=== PATIENT | male | born 1970 | race Caucasian/White ===

== ENCOUNTER 2016-12-30 18:09 | Emergency (ER) | payer OTHER ==
--- NOTE | 2016-12-30 19:10 | ER Document Report ---
ED Medical Screen (RME) - General Chief Complaint: Leg Pain Stated Complaint: LEG PAIN Time Seen by Provider: 12/30/16 18:55 Notes: Patient is a 46-year-old male, past medical history multiple PEs, left upper extremity DVT (compliant on Xarelto), presents with 3 days of right lower extremity swelling and pain after he took a car trip from [place]. He denies injury, numbness, tingling, difficulty walking or fevers. PE: Right calf swelling and tenderness, positive Naresh's sign on right, strong distal pulses, RRR, lungs CTAB I have greeted and performed a rapid initial assessment of this patient. A comprehensive ED assessment and evaluation of the patient, analysis of test results and completion of the medical decision making process will be conducted by additional ED providers. TRAVEL OUTSIDE OF THE [place] IN LAST 30 DAYS: No - Related Data Allergies/Adverse Reactions: Sulfa (Sulfonamide Antibiotics) Allergy (Verified 12/30/16 18:17) Past Medical History Renal/ Medical History: Denies: Hx Peritoneal Dialysis Physical Exam - Vital signs Vitals: Temp Pulse Resp BP Pulse Ox 98.4 F 94 20 112/81 96 12/30/16 18:17 12/30/16 18:17 12/30/16 18:17 12/30/16 18:17 12/30/16 18:17 Course - Vital Signs Vital signs: Temp Pulse Resp BP Pulse Ox 98.4 F 94 20 112/81 96 12/30/16 18:17 12/30/16 18:17 12/30/16 18:17 12/30/16 18:17 12/30/16 18:17
[2016-12-30 19:46] LABS: ALANINE AMINOTRANSFERASE 31 U/L (21-72); ALBUMIN 4.4 g/dL (3.5-5.0); ALKALINE PHOSPHATASE 77 U/L (38-126); ANION GAP 11 (5-19); ASPARTATE AMINO TRANSFERASE 21 U/L (17-59); BILIRUBIN,DIRECT 0.3 mg/dL (0.0-0.4); BILIRUBIN,TOTAL 0.6 mg/dL (0.2-1.3); BLOOD UREA NITROGEN 17 mg/dL (7-20); CALCIUM 9.4 mg/dL (8.4-10.2); CARBON DIOXIDE 29 mmol/L (22-30); CHLORIDE 99 mmol/L (98-107); CREATINE KINASE 88 U/L (55-170); CREATININE RESULT 1.17 mg/dL (0.52-1.25); GLUCOSE 96 mg/dL (75-110); POTASSIUM 4.5 mmol/L (3.6-5.0); SODIUM 138.5 mmol/L (137-145); TOTAL PROTEIN 7.4 g/dL (6.3-8.2)
[2016-12-30 20:04] LABS: ABSOLUTE BASOPHILS # (AUTO) 0.1 10^3/uL (0.0-0.2); ABSOLUTE EOSINOPHILS # (AUTO) 0.1 10^3/uL (0.0-0.6); ABSOLUTE LYMPHOCYTES (AUTO) 1.8 10^3/uL (0.5-4.7); ABSOLUTE MONOCYTES (AUTO) 0.6 10^3/uL (0.1-1.4); ABSOLUTE NEUT (AUTO) 5.6 10^3/uL (1.7-8.2); BASOPHILS % (AUTO) 0.9 % (0-2); EOSINOPHILS % (AUTO) 1.5 % (0-6); HEMATOCRIT 39.1 % (37.9-51.0); HEMOGLOBIN 12.7 g/dL (13.5-17.0); LYMPHOCYTES % (AUTO) 22.2 % (13-45); MEAN CORPUSCULAR HEMOGLOBIN 28.4 pg (27.0-33.4); MEAN CORPUSCULAR HGB CONC 32.4 g/dL (32.0-36.0); MEAN CORPUSCULAR VOLUME 87 fl (80-97); MONOCYTES % (AUTO) 7.8 % (3-13); RED BLOOD COUNT 4.47 10^6/uL (4.35-5.55); RED CELL DISTRIBUTION WIDTH 13.3 % (11.5-14.0); SEGMENTED NEUTROPHILS % (AUTO) 67.6 % (42-78); WHITE BLOOD COUNT 8.2 10^3/uL (4.0-10.5)
[2016-12-30 20:09] LABS: PROTHROMBIN TIME 15.4 SEC (11.4-15.4)
[2016-12-30 20:10] LABS: PARTIAL THROMBOPLASTIN TIME 32.6 SEC (23.5-35.8)
[2016-12-30] MEDS ORDERED: OXYCODONE-ACETAMINOPHEN 5-325 MG TABLET PO ONE (20:22)
--- NOTE | 2016-12-30 20:22 | ER Document Report ---
ED Extremity Problem, Lower - General Chief Complaint: Leg Pain Stated Complaint: LEG PAIN Time Seen by Provider: 12/30/16 18:55 Notes: Patient is a 46-year-old male that comes emergency department for chief complaint of right lower extremity swelling. Patient states he has had these symptoms for about 3 days, initially he had swelling in both lower extremities, left lower extremity resolved, right lower extremity seems to have worsened. He came down from [place] last Friday in a two-part trip, he has a history of DVT in the left lower extremity and PEs, this was diagnosed 2 months ago, he is compliant with Xarelto. He denies shortness of breath, fever, he denies any other symptoms except right lower extremity pain. He is leaving this area on Friday to go back home to [place]. TRAVEL OUTSIDE OF THE [place] IN LAST 30 DAYS: No - Related Data Allergies/Adverse Reactions: Sulfa (Sulfonamide Antibiotics) Allergy (Verified 12/30/16 18:17) Past Medical History - General Information source: Patient - Social History Smoking Status: Never Smoker Frequency of alcohol use: None Drug Abuse: None Lives with: Family Family History: Reviewed & Not Pertinent Patient has suicidal ideation: No Patient has homicidal ideation: No - Past Medical History Cardiac Medical History: Reports: Hx DVT, Hx Pulmonary Embolism Renal/ Medical History: Denies: Hx Peritoneal Dialysis Surgical Hx: Negative - Immunizations Immunizations up to date: Yes Hx Diphtheria, Pertussis, Tetanus Vaccination: Yes Review of Systems - Review of Systems Constitutional: No symptoms reported EENT: No symptoms reported Cardiovascular: See HPI Respiratory: No symptoms reported Gastrointestinal: No symptoms reported Genitourinary: No symptoms reported Male Genitourinary: No symptoms reported Musculoskeletal: See HPI Skin: No symptoms reported Hematologic/Lymphatic: No symptoms reported Neurological/Psychological: No symptoms reported Physical Exam - Vital signs Vitals: Temp Pulse Resp BP Pulse Ox 98.4 F 94 20 112/81 96 12/30/16 18:17 12/30/16 18:17 12/30/16 18:17 12/30/16 18:17 12/30/16 18:17 Interpretation: Normal - General General appearance: Appears well, Alert In distress: None - HEENT Head: Normocephalic, Atraumatic Eyes: Normal Conjunctiva: Normal Extraocular movements intact: Yes Eyelashes: Normal Pupils: PERRL Mouth/Lips: Normal Mucous membranes: Normal Pharynx: Normal Neck: Normal - Respiratory Respiratory status: No respiratory distress Chest status: Nontender Breath sounds: Normal Chest palpation: Normal - Cardiovascular Rhythm: Regular. No: Tachycardia Heart sounds: Normal auscultation, S1 appreciated, S2 appreciated Murmur: No - Abdominal Inspection: Normal Distension: No distension Bowel sounds: Normal Tenderness: Nontender. No: Tender, Guarding Organomegaly: No organomegaly - Back Back: Normal, Nontender. No: Tender, Vertebra tenderness - Extremities General upper extremity: Normal inspection, Nontender, Normal color, Normal ROM , Normal temperature General lower extremity: Other - Right lower extremity with mild erythema over the medial aspect consistent with first-degree burn, there is tenderness over the calf, positive Homans sign, there is questionable slight lower extremity swelling on the right compared to the left, normal distal pulses and sensation, unremarkable exam otherwise - Neurological Neuro grossly intact: Yes Cognition: Normal Orientation: AAOx4 Sosa Coma Scale Eye Opening: Spontaneous Piffard Coma Scale Verbal: Oriented Sosa Coma Scale Motor: Obeys Commands Sosa Coma Scale Total: 15 Speech: Normal Cranial nerves: Normal Cerebellar coordination: Normal Motor strength normal: LUE, RUE, LLE, RLE Additional motor exam normals: Equal v groove cutter Sensory: Normal - Psychological Associated symptoms: Normal affect, Normal mood - Skin Skin Temperature: Warm Skin Moisture: Dry Skin Color: Normal Course - Re-evaluation Re-evalutation: Erythematous streak up the medial aspect of the right leg, patient states this was a sunburn, it is consistent with a sunburn and does not appear to be cellulitis. Calf tenderness, questionable swelling, positive Homans sign. Unremarkable laboratory workup. Ultrasound initial report showing reflux, subacute clots in the calf area but not in the main vasculature, does not indicate treatment failure on Xarelto or obvious acute abnormality. I discussed this with Dr. Claire. Patient will be discharged on pain medication, instructed to follow-up with his provider, instructed to continue Xarelto, discussed return precautions. Discussed results in detail with patient. Patient states understanding and agreement. - Vital Signs Vital signs: Temp Pulse Resp BP Pulse Ox 97.4 F 83 18 118/73 96 12/30/16 22:24 12/30/16 22:24 12/30/16 22:24 12/30/16 22:24 12/30/16 22:24 - Laboratory Result Diagrams: 12/30/16 19:45 12/30/16 19:18 Laboratory results interpreted by me: 12/30/16 19:45 Hgb 12.7 L Discharge - Discharge Clinical Impression: Swelling of right lower extremity Condition: Stable Disposition: HOME, SELF-CARE Additional Instructions: Laboratory workup is unremarkable. Ultrasound is most consistent with what appear to be subacute clot within the vessels of the calf with no new clots or concerning large clots in the main vasculature. Unable to tell the age of the clots you have. Continue Xarelto, place warm compresses on the leg, elevate your legs, take the pain medication if needed, follow up with your Provider. Return to the ED for any concerning or worsening symptoms - severe swelling, worsening pain, fever, developing redness, difficulty breathing, etc. Prescriptions: Morphine Sulfate [Morphine Ir 15 Mg Tablet] 15 mg PO Q4HP PRN #12 tablet PRN Reason:
--- NOTE | 2016-12-30 22:22 | RADIOLOGY REPORT (SQ) ---
EXAM DESCRIPTION: VENOUS UNILATERAL LOWER COMPLETED DATE/TIME: 12/30/2016 10:06 pm REASON FOR STUDY: RLE swelling, Hx of DVTs COMPARISON: None. TECHNIQUE: Dynamic and static hays scale and color images acquired of the right leg venous system. S elected spectral images acquired with additional compression and augmentation maneuvers. The contrala teral common femoral vein and saphenofemoral junction were also imaged. Images stored on PACS. LIMITATIONS: None. FINDINGS: COMMON FEMORAL: Normal phasicity, compression and augmentation. No visualized echogenic ma terial on hays scale. No defects on color images. FEMORAL: Normal compression and augmentation. No visualized echogenic material on hays scale. No defe cts on color images. Reflux noted within the femoral vein POPLITEAL: Normal compression, augmentation. No visualized echogenic material on hays scale. No defec ts on color images. CALF VESSELS: Partially occlusive subacute thrombus noted within the in the right gastrocnemius vein. Remainder the paired calf veins are patent without thrombus. GSV and SSV: Normal compression, augmentation. No visualized echogenic material on hays scale. No def ects on color images. ANY DEEP VENOUS INSUFFICIENCY: Not evaluated. ANY EVIDENCE OF POPLITEAL CYST: No. OTHER: No other significant finding. CONTRALATERAL COMMON FEMORAL VEIN AND SAPHENOFEMORAL JUNCTION: Normal phasicity, compression and augmentation. No visualized echogenic material on hays scale. No de fects on color images. IMPRESSION: Partially occlusive subacute thrombus noted within the right gastrocnemius vein without extension into the fem -popliteal venous system. No other DVT or SVT identified. TECHNICAL DOCUMENTATION: JOB ID: [id number] [employer]- All Rights Reserved
[2016-12-30 22:26] VITALS: BP 118/73
== END 2016-12-30 22:24 | disposition home or self-care (01) ==
LOC: ER 18:09
DX: M79.89 Other specified soft tissue disorders (principal); M79.604 Pain in right leg; Z88.2 Allergy status to sulfonamides; Z86.718 Personal history of other venous thrombosis and embolism; Z79.02 Long term (current) use of antithrombotics/antiplatelets; Z86.711 Personal history of pulmonary embolism
CPT/HCPCS: 36415; 80053; 82550; 85025; 85610; 85730; 93971; 99284